=== PATIENT | male | born 1995 | race Caucasian/White ===

== ENCOUNTER 2016-09-06 12:55 | Emergency (ER) | payer OTHER ==
[2016-09-06 13:03] VITALS: TEMP 97.7; O2SAT 97
--- NOTE | 2016-09-06 14:44 | EDPHY ---
H & P Smoking Status: Never smoked Time Seen by Provider: 09/06/16 14:34 HPI/ROS: CHIEF COMPLAINT: Puncture wound HISTORY OF PRESENT ILLNESS: This is a 21-year-old male presenting to the emergency department for puncture wound to right middle finger. Patient states sent over by her Urgent Care to rule out foreign body and because finger has intermittent numbness. Patient states he was working in the shop and exact go knife fell off the shelf punctured his finger, full range of motion. Tetanus is up-to-date REVIEW OF SYSTEMS: Constitutional: No fever, no chills. Eyes: No discharge. No blurred vision ENT: No sore throat. Cardiovascular: No chest pain, no palpitations. Respiratory: No cough, no shortness of breath. Musculoskeletal: No back pain. Skin: No rashes. Right middle finger puncture wound Neurological: No headache. (Karina Shrestha) Physical Exam: General Appearance: Alert and no distress. Eyes: Pupils equal and round no injection. Respiratory: lungs are clear to auscultation. Cardiac: regular rate and rhythm Musculoskeletal: Neck full range of motion Extremities: Right anterior middle finger puncture wound noted. Full range of motion. No flexor tendon injury. Skin: No rashes or lesions. (Karina Shrestha) Constitutional: Initial Vital Signs Temperature (C) 36.5 C 09/06/16 13:01 Heart Rate 57 L 09/06/16 13:01 Respiratory Rate 14 09/06/16 13:01 Blood Pressure 131/74 H 09/06/16 13:01 O2 Sat (%) 97 09/06/16 13:01 O2 Delivery Mode Room Air Allergies/Adverse Reactions: No Known Allergies Allergy (Verified 10/31/12 10:52) Home Medications: Medication Instructions Recorded Isotretinoin [Accutane] 10 mg PO 10/31/12 Miscellaneous Medical Supply [NO 1 ea MISC AD 10/31/12 HOME MEDS] Medical Decision Making ED Course/Re-evaluation: Discussed ED plan of care: Wound irrigation, reviewed x-ray no foreign body noted 1510: Discussed x-ray results with patient and mother. Discharge home---> stable, discussed all discharge instructions (Karina Shrestha) I did not see this patient while he was in the emergency department. However his care was discussed with the nurse practitioner while the patient was in the department. I agree with treatment plan and management (Gonzalez Medeiros) Differential Diagnosis: Other differential diagnosis considered but not limited to foreign body, finger laceration, tendon laceration (Karina Shrestha) Departure - Departure Disposition: Home, Routine, Self-Care Clinical Impression: Puncture wound of hand Condition: Good Instructions: Puncture Wound (ED) Additional Instructions: 1. No acute findings or foreign body seen on x-ray. Keep wound clean and dry 2. You can keep covered with bacitracin 3. Monitor for any worsening finger numbness, or any infection: Such as redness red streaks swelling pus 4. You can take ibuprofen 600 mg every 6-8 hours as needed 5. Follow up with your primary care provider as needed Referrals: Reginaldo Ascencio MD [Primary Care Provider] - As per Instructions
[2016-09-06 15:06] VITALS: BP 107/52; PULSE 51; RESP 16
== END 2016-09-06 15:06 | disposition home or self-care (01) ==
DX: S61.232A Puncture wound without foreign body of right middle finger without damage to nail, initial encounter (principal); W26.0XXA Contact with knife, initial encounter; Y92.69 Other specified industrial and construction area as the place of occurrence of the external cause; Y99.0 Civilian activity done for income or pay